=== PATIENT | female | born 1995 ===

== ENCOUNTER 2017-04-12 20:38 | Observation (INO) ==
[2017-04-12 21:08] LABS: Bilirubin,Urine Small (Negative); Blood,Urine Negative (Negative); Clarity,Urine Cloudy (Clear); Color,Urine Dark Yellow (Yellow); Glucose,Urine (UA) Normal (Normal); Ketones,Urine Negative (Negative); Leukocyte Esterase,Urine Negative (Negative); Nitrite,Urine Negative (Negative); PH,Urine 5.5 pH Units (5.0-8.0); Protein,Urine 100 mg/dL (Neg-Trace); Specific Gravity,Urine > 1.030 (1.010-1.025); Urobilinogen,Urine Normal (Normal)
[2017-04-12 21:10] LABS: Bacteria,Urine Many per hpf (None-Few); Squamous Epithelial Cell,Urine Many per lpf (None-Few); WBC,Urine 50-100 per hpf (0-3)
[2017-04-12 21:14] LABS: Amphetamine Screen,Urine Negative ng/mL (Cutoff=1000); Barbiturate Screen,Urine Negative ng/mL (Cutoff=200); Benzodiazepines Screen,Urine Negative ng/mL (Cutoff=200); Cannabinoid Screen,Urine Negative ng/mL (Cutoff = 50); Cocaine Screen,Urine Negative ng/mL (Cutoff= 300); Opiate Screen,Urine Negative ng/mL (Cutoff=300); Phencyclidine Screen,Urine Negative ng/mL (Cutoff=25)
[2017-04-12 21:20] LABS: Granular Casts,Urine Few per lpf (None Seen); Hyaline Casts,Urine Few per lpf (None-Few); RBC,Urine 0-3 per hpf (0-3)
[2017-04-12 21:21] LABS: Mucus,Urine Few (Few)
--- NOTE | 2017-04-12 22:23 | OB/GYN Progress Note ---
Date of Encounter: 04/12/17 Time of Encounter: 22:20 - Assessment and Plan (1) First in adolescent 16 years of age or older in third trimester Current Visit: Yes Status: Acute (2) 39 weeks gestation of Current Visit: Yes Status: Acute (3) False labor after 37 completed weeks of gestation Current Visit: Yes Status: Acute Labor precautions given will follow up with her primary [employer] this week Subjective - Subjective Interval history: Patient is a 21-year-old 1 para 0 at 39-2/7 weeks who presented to labor and delivery with complaint of contractions. She gets care at another facility but did not know where she was most ago since she lives locally she came to our facility. Patient states contractions every 2-3 minutes and going on all day. She denies any leaking of fluid still having good movement. Upon arrival to labor and delivery patient's having irregular contractions and was fingertip. We observed the patient for an hour there was no additional cervical change noted and patient will be discharged home with instructions to follow-up with her primary [employer] this week and find out where she is supposed to deliver. Antepartum ROS: contractions Objective - Vital Signs Vital Signs: Intake and Output 04/12/17 04/12/17 04/12/17 07:59 15:59 23:59 Other: Weight 97 kg Patient Weight 04/12/17 23:59 Weight 97 kg - Exam FHR: category 1 FHR comments: heart tones 140s reactive contractions every 2-5 minutes irregular Abdomen: Present: gravid Uterus: Present: normal Cervical dilation: 1 Cervix effacement: 50 station: -3 - Labs Labs: Abnormal lab results Urine Clarity Cloudy (Clear) A 04/12/17 20:57 Ur Specific [place] > 1.030 (1.010-1.025) H 04/12/17 20:57 Urine Protein 100 mg/dL (Neg-Trace) H 04/12/17 20:57 Urine Bilirubin Small (Negative) H 04/12/17 20:57 Urine Microscopic WBC 50-100 per hpf (0-3) H 04/12/17 20:57 Ur Squamous Epith Cells Many per lpf (None-Few) H 04/12/17 20:57 Urine Bacteria Many per hpf (None-Few) H 04/12/17 20:57 Granular Casts Few per lpf (None Seen) H 04/12/17 20:57
== END 2017-04-12 22:26 | disposition home or self-care (01) ==
LOC: 1NENULAB
PROVIDERS: ADMIT Obstetrics & Gynecology; ATTEND Obstetrics & Gynecology